=== PATIENT | female | born 1990 | race Two or more races ===

== ENCOUNTER 2018-11-23 23:45 | Emergency (ER) | payer OTHER ==
[2018-11-24 00:06] VITALS: BP 110/74; PULSE 65; TEMP 97.9; BMI 22.0
[2018-11-24] MEDS ORDERED: NAPROXEN 500 MG TABLET (FP) PO ONE (00:16)
[2018-11-24] MEDS ORDERED: NAPROXEN 500 MG TABLET (FP) ONE (00:23)
--- NOTE | 2018-11-24 00:25 | PDOC ---
History of Present Illness - General Chief Complaint: Injury Stated Complaint: FALL/L/HAND/HEMATOMA Time Seen by Provider: 11/24/18 00:09 History Source: Patient Exam Limitations: No Limitations - History of Present Illness Initial Comments: 11/24/18 00:25 HISTORY OF PRESENT ILLNESS: 28-year-old right-handed woman who denies medical history presents emergency department for evaluation of pain to her left forearm status post slip and fall on stairs. Patient reports she was walking down stairs in an apartment building when she slipped falling feetfirst down concrete steps. She extend her left arm to try to defend herself in the fall striking the forearm on the edge of or the steps. She denies striking her head reports striking her upper back. She denies any head, neck or back pain. No recent travel or sick contacts. PAST MEDICAL HISTORY: Denies past medical history SURGICAL HISTORY: Denies ALLERGIES: No known drug allergies REVIEW OF SYSTEMS General/Constitutional: Denies fever or chills. Denies weakness, weight change. HEENT: Denies change in vision. Denies ear pain or discharge. Denies sore throat. Cardiovascular: Denies chest pain or shortness of breath. Respiratory: Denies cough, wheezing, or hemoptysis. Gastrointestinal: Denies nausea, vomiting, diarrhea or constipation. Denies rectal bleeding. Genitourinary: Denies dysuria, frequency, or change in urination. Musculoskeletal: see HPI Skin and breasts: Denies rash or easy bruising. Neurologic: Denies headache, vertigo, loss of consciousness, or loss of sensation. Psychiatric: Denies depression or anxiety. Endocrine: Denies increased thirst. Denies abnormal weight change. Hematologic/Lymphatic: Denies anemia, easy bleeding, or history of blood clots. Allergic/Immunologic: Denies hives or skin allergy. Denies latex allergy. PHYSICAL EXAM General Appearance: Well-appearing, appropriately dressed. No apparent distress , no intoxication. HEENT: EOMI, PERRLA, normal ENT inspection, normal voice, TMs normal, pharynx normal. No conjunctival pallor. No photophobia, scleral icterus. Neck: Supple. Trachea midline. No tenderness, rigidity, carotid bruit, stridor , lymphadenopathy, or thyromegaly. Full active range of motion present. Respiratory/Chest: Lungs CTAB. No shortness of breath, chest tenderness, respiratory distress, accessory muscle use. No crackles, rales, rhonchi, stridor , wheezing, dullness Cardiovascular: RRR. S1, S2. No JVD, murmur, bradycardia, tachycardia. Vascular Pulses: Dorsalis-Pedis (R): 2+, Dorsalis-Pedis (L): 2+ Gastrointestinal/Abdominal: Normal bowel sounds. Abdomen soft, non-distended. No tenderness or rebound tenderness. No organomegaly, pulsatile mass, guarding, hernia, hepatomegaly, splenomegaly. Lymphatic: No adenopathy, tenderness. Musculoskeletal/Extremities: 4 cm x 2 cm ovoid hematoma present over the left proximal ulna. No bony tenderness, deformities or step-offs present. Capillary refill is within normal limits. Full range of motion noted without any restrictions for pain. Integumentary: Appropriate color, dry, warm. No cyanosis, erythema, jaundice or rash Neurologic: vending service technician II-XII intact. Fully oriented, alert. Appropriate mood/affect. Motor strength 5/5. No appreciable EOM palsy, facial droop or sensory deficit. Past History - Past Medical History Allergies/Adverse Reactions: Allergies Allergy/AdvReac Type Severity Reaction Status Date / Time No Known Allergies Allergy Verified 11/24/18 00:05 Home Medications: Ambulatory Orders Methocarbamol [Robaxin -] 500 mg PO BID #14 tablet 11/24/18 COPD: No - Surgical History GI Surgery: Yes (UTERINE SURGERY) - Suicide/Smoking/Psychosocial Hx Smoking History: Never smoked Have you smoked in the past 12 months: No Information on smoking cessation initiated: No Hx Alcohol Use: No Drug/Substance Use Hx: No *Physical Exam - Vital Signs Last Vital Signs Temp Pulse Resp BP Pulse Ox 97.9 F 65 20 110/74 100 11/24/18 00:05 11/24/18 00:05 11/24/18 00:05 11/24/18 00:05 11/24/18 00:05 Medical Decision Making - Medical Decision Making 11/24/18 00:31 A/P: 28-year-old woman with left forearm hematoma status post fall on stairs No head trauma noted No Ya sign present TMs within normal limits without hemotympanum No cervical spinal pain in full active range of motion present. X-ray to rule out fracture of the left ulna Naprosyn 500 mg orally Reassess 11/24/18 01:10 X-rays as read by me: No acute fractures present. Soft tissue swelling present over the left proximal ulna. Discharge home. I discussed the physical exam findings, ancillary test results and final diagnoses with the patient. I answered all of the patient's questions. The patient was satisfied with the care received and felt comfortable with the discharge plan and treatment plan. The patient will call their primary care physician within 24 hours to arrange follow-up and will return to the Emergency Department with any new, persistent or worsening symptoms. *DC/Admit/Observation/Transfer Diagnosis at time of Disposition: Fall (on) (from) other stairs and steps, initial encounter, Hematoma - Discharge Dispostion Disposition: HOME Condition at time of disposition: Fair Decision to Admit order: No - Prescriptions Prescriptions: Methocarbamol [Robaxin -] 500 mg PO BID #14 tablet - Referrals - Patient Instructions Additional Instructions: Apply ice to swelling as needed for pain or swelling. Take Naprosyn (Aleve) as directed by manufacturers instructions for pain. Take Robaxin 500 mg 3 times a day as needed for potential back and muscle pains. Follow-up to primary doctor within the next 7 days for reevaluation. Return to emergency department for any new or worsening symptoms. Thank you very much for choosing us to provide your emergent health care needs. - Post Discharge Activity Forms/Work/School Notes: Back to Work
== END 2018-11-24 01:17 | disposition home or self-care (01) ==
LOC: JER 23:45
DX: S50.12XA Contusion of left forearm, initial encounter (principal); W10.8XXA Fall (on) (from) other stairs and steps, initial encounter; Y93.89 Activity, other specified; Y92.018 Other place in single-family (private) house as the place of occurrence of the external cause; Y99.8 Other external cause status
CPT/HCPCS: 73090-TC-LT-FY; 99283-25